=== PATIENT | female | born 1960 | race Caucasian/White ===

== ENCOUNTER 2018-11-26 23:35 | Emergency (ER) | payer BC ==
[2018-11-26] MEDS ORDERED: Ketorolac Tromethamine 30 MG/ML VIAL ONE (23:53)
--- NOTE | 2018-11-27 07:38 | RAD ---
XR Knee Lt 4 View STANDARD HISTORY: Left knee pain COMPARISON: None. FINDINGS: Degenerative changes are present. No fracture, dislocation or bony destruction is identifie d.
== END 2018-11-27 00:23 | disposition home or self-care (01) ==
LOC: SCSER 23:35
DX: M25.562 Pain in left knee (principal); M06.9 Rheumatoid arthritis, unspecified
CPT/HCPCS: 96372; J1885

== ENCOUNTER 2020-02-19 10:55 | Outpatient (CLI) | payer BC, OTHER ==
[2020-02-21 12:33] LABS: SARS-CoV-2 MS2 Positive; SARS-CoV-2 N Gene Negative; SARS-CoV-2 S Gene Negative; SARS-CoV-2 orf1ab Negative
== END 2020-02-19 10:56 | disposition home or self-care (01) ==
LOC: LABSCS 10:55
PROVIDERS: ATTEND Family Medicine
DX: Z01.812 Encounter for preprocedural laboratory examination (principal); Z11.59 Encounter for screening for other viral diseases; M05.79 Rheumatoid arthritis with rheumatoid factor of multiple sites without organ or systems involvement; R07.89 Other chest pain; R06.02 Shortness of breath
CPT/HCPCS: 87635; U0003